=== PATIENT | female | born 1995 | race African-American/Black ===

== ENCOUNTER 2017-02-10 21:18 | Emergency (ER) | payer OTHER ==
[~2017-02-10] VITALS: Ht 165.1 cm; Wt 52.2 kg
[2017-02-10] MEDS ORDERED: NAPROSYN500 MG PO (22:06)
[2017-02-10] MEDS ORDERED: ROBAXIN 750 MG750 M1 PO (22:06)
[2017-02-10 22:39] VITALS: BP 124/76
== END 2017-02-10 22:50 | disposition home or self-care (01) ==
LOC: ER 21:18
DX: S00.81XA Abrasion of other part of head, initial encounter (principal); S09.90XA Unspecified injury of head, initial encounter; V43.62XA Car passenger injured in collision with other type car in traffic accident, initial encounter; Y93.I9 Activity, other involving external motion; Y92.488 Other paved roadways as the place of occurrence of the external cause; Y99.9 Unspecified external cause status